=== PATIENT | female | born 1970 | race Caucasian/White ===

== ENCOUNTER 2018-01-17 22:46 | Emergency (ER) | payer OTHER ==
[~2018-01-17] VITALS: Ht 165.1 cm; Wt 77.1 kg
[~2018-01-17 22:46] MED LIST: DEPO-PROVE150 MG/1 M IM; IBUPROFEN 200200 M1 PO
== END 2018-01-18 00:54 | disposition home or self-care (01) ==
LOC: ER 22:46
DX: S06.9X9A Unspecified intracranial injury with loss of consciousness of unspecified duration, initial encounter (principal); S69.92XA Unspecified injury of left wrist, hand and finger(s), initial encounter; W13.8XXA Fall from, out of or through other building or structure, initial encounter; Y93.89 Activity, other specified; Y92.89 Other specified places as the place of occurrence of the external cause; Y99.8 Other external cause status